=== PATIENT | male | born 1965 | race Caucasian/White ===

== ENCOUNTER 2022-06-14 10:26 | Outpatient (CLI) | payer OTHER, SELFPAY ==
--- NOTE | 2022-06-14 11:04 | XR_ITS ---
WS: [id number] Right knee, AP and lateral views, 06/14/2022 Clinical Data: PAIN, ENCOUNTER FOR DISABILITY DETERMINATION Comparison: None. Findings: No fractures or dislocations are seen. The joint spaces are normal. The patella is intact. The soft t issues are unremarkable. XR/XR knee RT 1-2V [id number] Impression: Negative right knee. Kellgren-Conner Classification: grade 0 (none): definite absence of x-ray contreras nges of osteoarthritis
--- NOTE | 2022-06-14 11:04 | XR_ITS ---
WS: [id number] Lumbar spine, 3 views, 06/14/2022 Clinical Data: PAIN, ENCOUNTER FOR DISABILITY DETERMINATION Comparison: None. Findings: No subluxation is seen. There is irregularity of the superior cortical margin of L2 which may indicat e an old cortical fracture. There is anterior spurring from L1 through L5. No disc space narrowing is seen. The transverse processes and SI joints are normal. XR/XR lumbar spine 2-3V* [id number] Impression: 1. Irregularity the superior cortex of the L2 vertebral body which may indicate an old cortical fracture. 2. Anterior spurring of L1-L5.
== END 2022-06-14 10:27 | disposition home or self-care (01) ==
PROVIDERS: PCP Nurse Practitioner Family; Visit Provider Dermatology
DX: Z02.71 Encounter for disability determination (principal); M46.06 Spinal enthesopathy, lumbar region
CPT/HCPCS: 72100; 73560

== ENCOUNTER → 2023-01-16 11:44 | Outpatient (BNVA) | payer MEDICAID, SELFPAY | PROVIDERS: PCP Nurse Practitioner Family; Visit Provider Nurse Practitioner | DX: M54.9 Dorsalgia, unspecified (principal); F17.210 Nicotine dependence, cigarettes, uncomplicated; M19.031 Primary osteoarthritis, right wrist; R93.7 Abnormal findings on diagnostic imaging of other parts of musculoskeletal system; R91.8 Other nonspecific abnormal finding of lung field; M48.02 Spinal stenosis, cervical region | CPT/HCPCS: 71046; 72040; 72072; 72100; 73110 ==

== ENCOUNTER → 2023-01-24 14:01 | Outpatient (BNVA) | payer MEDICAID, SELFPAY | PROVIDERS: PCP Nurse Practitioner Family; Visit Provider Nurse Practitioner | DX: M51.36 Other intervertebral disc degeneration, lumbar region (principal); E55.9 Vitamin D deficiency, unspecified | CPT/HCPCS: 80053; 80061; 82306; 84443; 85007; 85025; 86140 ==

== ENCOUNTER → 2023-07-08 08:29 | Outpatient (BNVA) | payer MEDICAID, SELFPAY | PROVIDERS: PCP Nurse Practitioner Family; Visit Provider Nurse Practitioner | DX: E55.9 Vitamin D deficiency, unspecified (principal); E78.2 Mixed hyperlipidemia; M51.36 Other intervertebral disc degeneration, lumbar region | CPT/HCPCS: 80053; 80061; 82306 ==

== ENCOUNTER → 2025-06-17 10:40 | Outpatient (BNVA) | payer MEDICAID, SELFPAY | PROVIDERS: PCP Nurse Practitioner; Visit Provider Nurse Practitioner | DX: Z12.5 Encounter for screening for malignant neoplasm of prostate (principal); Z13.6 Encounter for screening for cardiovascular disorders; E55.9 Vitamin D deficiency, unspecified | CPT/HCPCS: 80053; 80061; 82306; 85025; G0103 ==

== ENCOUNTER → 2025-06-28 12:13 | Outpatient (BNVA) | payer MEDICAID, SELFPAY | PROVIDERS: PCP Nurse Practitioner; Visit Provider Clinical Nurse Specialist Adult Health | DX: J44.1 Chronic obstructive pulmonary disease with (acute) exacerbation (principal) | CPT/HCPCS: 71046 ==